=== PATIENT | female | born 1965 | race Caucasian/White ===

== ENCOUNTER 2016-11-13 07:40 | Inpatient (IN) ==
[2016-11-13 08:33] LABS: Apearance,Urine CLEAR (Clear); Bilirubin,Urine Negative (Negative); Blood, Urine Negative (Negative); Glucose,Urine (UA) Negative (Negative); Hyaline Casts,Urine 1 /LPF (0-3); Ketones,Urine Negative (Negative); Nitrite,Urine Negative (Negative); Protein,Urine Negative; Squamous Epithelial Cell,Urine Occasional /HPF (0-10); Urine Color Straw (Yellow); Urine Specific Gravity 1.003 (1.001-1.035); Urine Urobilinogen < 2.0 EU/DL (0.2-1.0); WBC,Urine <1 /HPF (0-6)
--- NOTE | 2016-11-13 08:47 | XRay Report ---
Exam: XR ankle 3V RT Date: 11/13/2016 8:27 AM Indication: Pain deformity Comparison: None Technical: AP lateral oblique image Findings: Spiral fracture of the fibula is present. The exam reveals faint lucency over the medial malleolus. The talus is intact. The calcaneus reveals enthesophyte spur present calcic is no the Achilles tendon. The adjacent tarsal bones metatarsals are intact. Soft tissue swelling and small joint effusion present. Impression: 1. Spiral fracture of the distal fibula with slight lateral positioning 2. Nondisplaced fracture of the medial malleolus with faint lucency present. 3. Soft tissue swelling PROCEDURE INTERPRETED AT [facility] DEPARTMENT OF RADIOLOGY Final Report Signed by: Dr. Ubaldo Reyes
--- NOTE | 2016-11-13 08:48 | CT Report ---
CT head/brain wo con INDICATION: Altered mental status/confusion The total DLP is 942 mGy*cm. COMPARISON: None available Technique: Serial axial tomographic images of the brain were obtained without the use of intravenous contrast. Dose reduction: This CT exam was performed using one or more of the following dose reduction techniques: Automated exposure control, automated adjustment of the mA and/or KV according to patient size, or use of iterative reconstruction technique. Findings: The cortical sulcal pattern is generally symmetric and within normal limits in appearance bilaterally. There is no evidence of vascular territory infarct or acute intracranial hemorrhage. The rivas-white matter differentiation is generally maintained. There is no hydrocephalus. The basilar cisterns are patent. The visualized paranasal sinuses, right mastoid air cells and middle ear cavities are predominantly clear. Partial opacification of the left mastoid air cells is noted. The included orbits and their contents appear within normal limits. The visualized osseous structures and overlying soft tissues of the skull and face demonstrate no acute abnormality. IMPRESSION: No acute intracranial abnormality. Partial opacification of left mastoid air cells PROCEDURE INTERPRETED AT [facility] DEPARTMENT OF RADIOLOGY Final Report Signed by: Abhishek Brwon
--- NOTE | 2016-11-13 08:53 | XRay Report ---
Exam: XR chest 1V portable Indication: Confusion, altered mental status Comparison study: None Findings: The heart, mediastinum, and bony structures are within normal limits. Minimal perihilar interstitial opacities are noted, which are nonspecific. There is no focal consolidation, pneumothorax or pleural effusion identified. Impression: No definite focal pneumonia. Minimal perihilar interstitial opacities may represent underlying atelectasis or interstitial infectious/inflammatory infiltrates versus scarring. There is no prior for comparison. PROCEDURE INTERPRETED AT [facility] DEPARTMENT OF RADIOLOGY Final Report Signed by: Abhishek Brown
[2016-11-13 08:57] LABS: Basophils # 0.1 10*3/uL (0.0-0.2); Basophils % 0.3 % (0.0-0.8); Eosinophils # 0.4 10*3/uL (0.0-0.87); Eosinophils % 2.5 % (0.00-10.9); Hematocrit 42.7 VOL% (35.7-47.0); Hemoglobin 14.8 GM/DL (12.0-16.0); Immature Granulocytes % 0.8 %; Immature Granulocytes Absolute 0.12 #; Lymphocytes # 4.4 10*3/uL (1.4-4.0); Mean Corpuscular HGB Conc 34.7 GM/DL (32-36); Mean Corpuscular Hemoglobin 31 PG (27-34); Mean Corpuscular Volume 90.1 FL (87-102); Mean Platelet Volume 9.4 FL (9.6-12.0); Monocytes % 6.5 % (1.7-12.7); Neutrophils # 9.1 10*3/uL (1.4-7.4); Neutrophils % 60.9 % (38.7-73.9); Platelet Count 282 T/CUMM (130-400); Red Blood Count 4.74 MC/CUMM (3.8-5.5); Red Cell Distribution Width 13.3 % (9.3-17.3)
[2016-11-13 09:02] LABS: PT Patient Result 10.3 SECS
[2016-11-13 09:09] LABS: Barbiturates Screen,Urine Negative (Negative); Benzodiazepines Screen,Urine Negative (Negative); Cannabinoid Screen,Urine Negative (Negative); Opiate Screen,Urine Negative (Negative); Phencyclidine Screen,Urine Negative (Negative)
[2016-11-13 09:19] LABS: Alanine Aminotransferase 25 U/L (13-56); Albumin 3.8 G/DL (3.4-5.0); Alkaline Phosphatase 105 U/L (45-117); Aspartate Amino Transferase 19 U/L (0-37); Bilirubin,Total < 0.39 MG/DL (0.2-1.0); Blood Urea Nitrogen 11 MG/DL (7-18); Calcium 9.4 MG/DL (8.5-10.1); Glucose 110 MG/DL (74-106); Osmolality,Calculated 280.3 MOS/KG (273-304); Sodium 141 MMOL/L (136-145); Total Protein 7.6 G/DL (6.4-8.3); Troponin I Only < 0.015 NG/ML (0.00-0.045)
--- NOTE | 2016-11-13 09:30 | EKG Report ---
Stationary ECG Study [facility] ER Test Date: 11/13/2016 9:31:39 AM Pat Name: ALEXIS BURNS Department: Room: Gender: F Bonderizer: : 1965 Requested by: Kehinde Williamson Order Number: [id number] Reading MD: HEATHER ROCHA Intervals One[place] Rate: 73 P: 57 DC: 151 QRS: 53 QRSD: 85 T: 55 QT: 388 QTc: 414 Interpretive Statements SINUS RHYTHM Electronically Signed On 11-13-16 17:13:18 CDT by HEATHER ROCHA [email or web address]
--- NOTE | 2016-11-13 10:15 | Emergency Department Note ---
Bart Piper Rolonda, am scribing for, and in the presence of, Kehinde Walton MD 08:36. Isabelle Piper Phillip K, MD, personally performed the services described in this documentation, ascribed by Jeevan Arriaga in my presence, and it is both accurate and complete . Arrival - Arrival Chief Complaint: Altered Mental Status Stated Complaint: AMS ED Nursing Triage Note: pt to triage via wc with c/o having ams onset this am around 0700. family states she is not talking and not acting right. Mode of Arrival: Wheelchair Limitations: Altered Mental Status Source: Significant other (), Old Records Reviewed, RN Notes Reviewed Time Seen by Provider: 11/13/16 08:17 - History of Present Illness HPI Narrative: Pt is a 51 y/o female who was brought to the ED via wheelchair for further evaluation of AMS with an onset of 0700 this morning. Pt has a SHx of smoking. states that he talked to her late last night and she was still functioning normally. By the time he got off of work this morning states that pt was ambulatory but was not able to speak which prompted visit to the ED today. states that pt normally has to have at least 2 cups of coffee every day in order for her to "be in her normal mood." also states that pt had been complaining of right hand pain and decreased movement for x2-3 days [employer]. No other complaint/pain in ED. Onset (ago): hour(s) Consistency: constant Severity: moderate, severe Severity scale (1-10): 7 Allergies/Adverse Reactions: Allergies Allergy/AdvReac Type Severity Reaction Status Date / Time No Known Allergies Allergy Unverified 11/13/16 07:50 Review of System - Review of System ROS unobtainable: due to mental status Medical,Surgical,& Family Hx - Social History Smoking Status: Current every day smoker Frequency of Alcohol Use: None Type of Drug Use: None Exam Vital Signs: Vital Signs Temperature 96.9 F L 11/13/16 07:51 Pulse Rate 82 11/13/16 07:51 Respiratory Rate 20 11/13/16 07:51 Blood Pressure 128/77 11/13/16 07:51 O2 Sat by Pulse Oximetry 97 11/13/16 07:44 - General General appearance: alert, lethargic - Head Head exam: Present: atraumatic, normocephalic - Eye Eye exam: Present: PERRL, EOMI - ENT ENT exam: Present: mucous membranes moist. Absent: mucous membranes dry - Neck Neck exam: Present: full ROM. Absent: tenderness - Chest Chest inspection: Present: symmetric chest wall rise. Absent: tenderness - Respiratory Respiratory exam: Present: normal lung sounds bilaterally. Absent: wheezes - Cardiovascular Cardiovascular exam: Present: regular rate, normal rhythm, normal heart sounds. Absent: bradycardia - Abdominal Exam Abdominal exam: Present: soft, normal bowel sounds. Absent: tenderness - Extremities Exam Extremities exam: Present: tenderness (Right ankle), joint swelling (Right ankle ). Absent: normal inspection (decreased movement on right side of the body) - Back Exam Back exam: Present: full ROM. Absent: tenderness - Neurological Exam Neurological exam: Present: alert, CN II-XII intact - Psychiatric Psychiatric exam: Present: other (did not follow commands; unable to answer questions; diffucult to arrouse ). Absent: normal affect, normal mood - Skin Skin exam: Present: warm, dry, intact, normal color. Absent: rash Results - Labs CBC & BMP: 11/13/16 08:01 11/13/16 08:01 Lab Results: I have reviewed the patients labs (Drug screen is negative. Alcohol is negative) Labs: Laboratory Tests 11/13/16 11/13/16 08:01 08:19 POC Glucose 109 H Urine pH 6.0 Ur Specific [place] 1.003 Urine Protein Negative Urine Glucose (UA) Negative Urine Ketones Negative Urine Blood Negative Urine Nitrate Negative Urine Bilirubin Negative Urine Urobilinogen < 2.0 H Urine Leukocytes Negative Urine WBC <1 Ur Squamous Epith Cells Occasional Hyaline Casts 1 Ur Culture Indicated? Not indicated Laboratory Tests 11/13/16 08:01 WBC 15.0 H RBC 4.74 Hgb 14.8 Hct 42.7 Plt Count 282 MPV 9.4 L Neut # (Auto) 9.1 H Lymph # (Auto) 4.4 H [place] # (Auto) 1.0 H Laboratory Tests 11/13/16 11/13/16 11/13/16 08:01 08:01 08:01 INR 1.0 PT Patient/Control Mix 10.3 Urine pH 6.0 Ur Specific [place] 1.003 Urine Protein Negative Urine Glucose (UA) Negative Urine Ketones Negative Urine Blood Negative Urine Nitrate Negative Urine Bilirubin Negative Urine Urobilinogen < 2.0 H Urine Leukocytes Negative Urine WBC <1 Ur Squamous Epith Cells Occasional Hyaline Casts 1 Ur Culture Indicated? Not indicated Urine Opiates Screen Negative Ur Barbiturates Screen Negative Ur Phencyclidine Scrn Negative U Amphetamine/Methamph Negative U Benzodiazepines Scrn Negative U Cocaine Metab Screen Negative U Cannabinoids Screen Negative - EKG EKG results: interpreted by JEAN, WNL, sinus rhythm - Diagnostic Findings Procedure: Chest x-ray: report reviewed by me (No definite focal pneumonia. Minimal perihilar interstitial opacities may represent underlying atelectasis or interstitial infectious/inflammatory infiltrates versus scarring. There is no prior for comparison.), CT: report reviewed by me (Head/Brain: No acute intracranial abnormality.), X-ray: report reviewed by me (Ankle: 1. Spiral fracture of the distal fibula with slight lateral positioning. 2. Nondisplaced fracture of the medial mallelous with faint lucency present. 3. Soft tissue swelling.) Disposition Clinical Impression: Altered mental status, Possible CVA, Acquired aphasia, Closed right ankle fracture Case discussed with: patient, patient's family Disposition: Still a Patient Condition: Guarded Additional Instructions: Admit to the hospitalist. Consult neurology and orthopedics.
--- NOTE | 2016-11-13 10:24 | Hospitalist History & Physical ---
Addendum entered and electronically signed by Radha Fu NP 11/13/16 11:31: Neurologic exam Patient is lethargic but arousable. She responds to name calling. She is Asphasic. She is in no acute distress and does not appear to be in pain or discomfort. She will open eyes to voice but immediately goes back to sleep. She does not follow commands. GCS 9: Opens eyes to voice, no verbal response ( patient does not answers questions); localizes pain (withdraws r/t tender to right ankle related to right ankle fracture) Cranial nerve: Unable to assess properly related to altered mental status and patient inability to follow commands. She moves extremities: Left side extremity frequently movement and right side minimal extremities movement, movement is not purposeful. Left side movements are stronger than the right side movements. Patient will open eyes to voice but does not close eyes to command and notice eye movement but without purpose. Did not smile with command but no obvious facial droop is noted; symmetrical in appearance. Family was not in room during exam, obtained history of present illness from ER physician and ER notes. Last well time is unknown. Unable to obtain information from patient r/t AMS. Unable to obtain complete medical history or surgical history r/t patients current altered mental status and no family available at present. Flat affect and unable to assess mood r/t AMS. ROS unable to complete related to patients current altered mental status and inability to provide information. Original Note: <Radha Fu - Last Filed: 11/13/16 10:08> Assessment and Plan - Time spent with patient Time spent with patient: Greater than 30 minutes (1) Altered mental status Status: Acute Assessment and plan: Stroke vs TIA vs Encephalopathy Admit to Hospitalist services to Critical Care bed. Consult Neurology: Dr Jimenez. Check Ammonia level. Asa, Lovenox, Statin coverage, Check A1c and bedside swallow eval. MRI, Carotids Dopplers, Echo. Consult OT and PT. Current Visit: Yes (2) Pneumonia Status: Acute Assessment and plan: Admit. Start Antibiotics: Levaquin. Check Ammonia level with complete stroke work-up as well. Repeat labs in the a.m. and chest xray in a.m. Current Visit: Yes (3) Fracture of ankle, medial malleolus, closed Status: Acute Assessment and plan: Consult Orthopedics for spiral fracture of the distal fibula with slight lateral positioning; nondisplaced fracture of the medial malleolus with faint lucency present, and soft tissue swelling. Current Visit: Yes History of Present Illness Chief complaint: altered mental status History of present illness: Ms. Almendarez is a 51 year old white female presented to the [facility] ED for further evaluation of altered mental status. Upon exam, family was not in the room and the nurse was unsure where they went. With exam, Patient will open eyes to her name but will not follow commands and doses back off to sleep. She will move all extremities but not purposefully or on command. It was reported by the , he talked to her last night and she was normal at that time. However, after getting off work this morning, he found in the state of being able to ambulate but unable to speak therefore he brought her to the ED for further evaluation. Medical history none significant known. Patient is a everyday smoker. Patient did not receive antithrombolytics related to unsure of the exact last normal time, was at work last night and came home this morning to find changes in her. At the time of ED presentation, the patient was assessed. Vital signs stable temp 96.9; pulse rate 82; blood pressure 128/77;97% oxygenation 1 L nasal cannula. Labs obtained: WBC 15.0; hemoglobin 14.8; hematocrit 42.7; platelet 282; INR 1.0; PT 10.3 sodium 141; potassium 4.0; chloride 107; carbon dioxide 26 ; anion gap 12.0; BUN 11; creatinine 0.9; glucose 110;AST 19; ALT 25; alkaline phos 105; troponin less than 0.015; albumin 3.8. Urinalysis within normal limits. Toxicology screen negative, alcohol negative. Head CT: No acute intracranial abnormality, partial opacification of the mastoid air cells. Chest x-ray: Minimal perihilar interstitial opacities may represent underlying atelectasis or interstitial infection/inflammatory infiltrates versus scarring. Ankle x-ray: Fracture distal fibula with slight lateral positioning, nondisplaced fracture of the medial malleolus with faint lucency present, soft tissue swelling. Patient was noted to be tender to touch of the right ankle but unable to get a clear picture of what happened to cause the fracture. After discussion with Dr. Walton ED physician, and [facility]. [facility] physician, it is agreed patient will be admitted to hospitalist services for continuation of care for further evaluation. We will consult Neurology. Will consult orthopedics for ankle fracture. Medications to be reviewed and reconciliation to follow. CODE STATUS full code. Allergies Allergy/AdvReac Type Severity Reaction Status Date / Time No Known Allergies Allergy Unverified 11/13/16 07:50 Medical,Surgical,& Family Hx - Social History Smoking Status: Current every day smoker Frequency of Alcohol Use: None Type of Drug Use: None Marital Status: Functional capacity: independent ambulation (able to ambulate until about/after 7 a.m.) Review of systems: ROS completed and pertinent positive and negatives in HPI. Exam - Constitutional Vitals: Period Temp Pulse Resp BP Sys/Menjivar Pulse Ox Last 24 Hr 96.9 F-96.9 F 82-82 20-20 128-128/77-77 97 General appearance: normal weight, no acute distress - Head Head exam: Present: normal inspection, normocephalic - Eye Eye exam: Present: EOMI Pupils: Present: STUART - ENT ENT exam: Present: other (moist membranes) - Neck Neck exam: Present: normal inspection - Respiratory Respiratory exam: Present: clear to auscultation bilaterally - Cardiovascular Cardiovascular exam: Present: regular rate and rhythm - GI/Abdominal GI/Abdominal exam: Present: normal bowel sounds, soft. Absent: guarding, tenderness, rebound - Extremities Exam Extremities exam: Present: other (able to move all extremities but not purposefully; weak movement to the right side; right ankle swollen and tender to touch; ) - Neurological Exam Neurological exam: Present: alert (lethargic) - Psychiatric Psychiatric exam: Present: flat affect (patient does not follow commands; unable to answer questions; arousable but immediately closes eyes and goes back to sleep). Absent: normal mood, anxious - Skin Skin exam: Present: normal color, warm, abrasion (right knee red without break in the skin, right ankel swollen and tender to touch), dry Results - Labs CBC & BMP: 11/13/16 08:01 11/13/16 08:01 Lab Results: I have reviewed the past 24 hour labs - EKG EKG results: interpreted by ERMD - Diagnostic Findings Procedure: Chest x-ray: report reviewed by me (No definite focal pneumonia, minimal perihilar interstitial opacities may represent underlying atelectasis or interstitial infectious/inflammatory infiltrates persists scarring, there is no prior comparison.), CT: report reviewed by me (Head: No acute intracranial abnormality, partial opacification of left mastoid air cell), X-ray: report reviewed by me (Ankle: Spiral fracture of the distal fibula with slight lateral positioning, nondisplaced fracture of the medial malleolus with faint lucency present, soft tissue swelling) <Alek Paz - Last Filed: 11/13/16 15:35> Assessment and Plan - Time spent with patient Time spent with patient: Greater than 30 minutes (1) Acute ischemic stroke Status: Acute Assessment and plan: Stroke workup. Neurology consult. Aspirin and statin. MRI,carotids and echo. Current Visit: Yes (2) Altered mental status Status: Acute Current Visit: Yes Qualifiers: Coma depth: [place] coma 9-12 (3) Closed right ankle fracture Status: Acute Current Visit: Yes Qualifiers: Encounter type: initial encounter Qualified Code(s): S82.891A - Other fracture of right lower leg, initial encounter for closed fracture History of Present Illness History of present illness: Ms. Almendarez is a 51 year old female brought to the emergency department this morning with altered mental status. She is being admitted to the hospital for workup of stroke. She also suffered a fall and right ankle fracture. Case was discussed with Radha Fu NP. The patient has no previous medical history according to her . The patient is unable to participate in the history portion due to her aphasia. She is not on any home medications. She does not see a primary care physician regularly. No recent surgeries or hospitalizations. A full review of systems is unobtainable secondary to the patient's aphasia. Medical,Surgical,& Family Hx - Medical History Medical History: noncontributory (No significant medical history according to the patient's family) - Surgical History Surgical History: noncontributory (No significant prior surgeries according to the patient's family) - Family History Family History: noncontributory (No family history of hypertension or stroke) ROS unobtainable: due to mental status Exam - Constitutional Vitals: Period Temp Pulse Resp BP Sys/Menjivar Pulse Ox Last 24 Hr 96.9 F-97.8 F 79-82 16-20 128-132/77-78 97-98 - Extremities Exam Extremities exam: Present: other - Neurological Exam Neurological exam: Present: abnormal gait, altered, motor sensory deficit. Absent: oriented X3, normal gait - Expanded Neurological Exam Neurological exam: Present: expressive aphasia Speech: Present: total aphasia Results - Labs CBC & BMP: 11/13/16 08:01 11/13/16 08:01 Lab Results: I have reviewed the past 24 hour labs
[2016-11-13] MEDS ORDERED: LABETALOL 20 MG/4 ML SYRINGE IV PRN (10:46)
[2016-11-13] MEDS ORDERED: ALBUTEROL/IPRATROPIUM 3 ML NEB RESP TX PRN (11:00)
[2016-11-13] MEDS ORDERED: LORazepam 2 MG/1 ML VIAL ONE (11:29)
[2016-11-13] MEDS: LEVOFLOXACIN INJ 750 MG in PREMIX 1 EACH IV SCH (12:49)
[2016-11-13] MEDS: SODIUM CHLORIDE 0.9% 1,000 ML IV SCH (12:50)
[2016-11-13] MEDS: ENOXAPARIN 40 MG/0.4 ML SYRINGE SUBCUT SCH (12:50)
[2016-11-13] MEDS: MORPHINE 2 MG/1 ML SYRINGE IV PRN ×3 (12:59→20:53)
[2016-11-13] MEDS ORDERED: LORazepam 2 MG/1 ML VIAL IV ONE (14:00)
--- NOTE | 2016-11-13 14:52 | Ultrasound Report ---
Exam: US carotid duplex BI Date: 11/13/2016 11:08 AM Indication: CVA, TIA symptoms Findings: Grayscale color flow analysis and spectral analysis imaging was performed with image stored and captured. Right Flow velocities centimeters per second Common carotid artery: 74 Proximal ICA: 200 Distal ICA: 162 External carotid artery: 313 Vertebral artery: 61 ICA/CCA ratio: 2.7 Measurements in millimeters Distal ICA: 4.8 Left: Flow velocities centimeters per second Common carotid artery: 75 Proximal ICA: 58 Distal ICA: 90 External carotid artery: 294 Vertebral artery: 55 ICA/CCA ratio: 1.2 Measurements in millimeters Distal ICA: 5.3 Minimal intimal hyperplasia the carotid arteries from the common carotid arteries. Moderate plaque within the takeoff the right ICA with mild plaque in the left ICA.. No spectral broadening clearly seen. Impression: 1. Findings suggest 50-70% stenosis of the right ICA. 2. 16-49% stenosis left ICA. CT angiography may be beneficial for further evaluation. Today studies were performed utilizing indirect NASCET criteria The ultrasound images were stored and captured PROCEDURE INTERPRETED AT [facility] DEPARTMENT OF RADIOLOGY Final Report Signed by: Dr. Ubaldo Reyes
--- NOTE | 2016-11-13 14:56 | Event Note ---
Pt gone for MRI
--- NOTE | 2016-11-13 16:08 | ECHO Report ---
Bertha Almendarez Exam Date: 11/13/2016 12:22 Referring Physician: Technologist: Sariah Quinn RDCS Age: 51 Ht (in): 63 Wt (lb): 130 Gender: F Exam Location: [facility] Echo Indications: Altered mental status, Pneumonia, Closed ankle fracture, Nicotine dependence, cigarettes, uncomplicated BP: 132 / 78 HR: 90 Rhythm: Sinus tachycardia Technical Quality: Fair IMPRESSIONS 1. Left ventricle is normal size and systolic function ejection fraction 60+%. 2. The patient is in sinus tachycardia at the time of the study. 3. Other cardiac chambers are normal size. 4. Cardiac valves overall appear to be unremarkable and within normal limits. 5. No gross source for emboli appreciated on this study. MEASUREMENTS (Male / Female) Normal Values 2D ECHO LV Diastolic Diameter PLAX 4.2 cm 4.2 - 5.9 / 3.9 - 5.3 cm LV Systolic Diameter PLAX 2.7 cm LV Fractional Shortening PLAX 35.0 % IVS Diastolic Thickness 0.7 cm 0.6 - 1.0 / 0.6 - 0.9 cm LVPW Diastolic Thickness 0.8 cm 0.6 - 1.0 / 0.6 - 0.9 cm RV Internal Dim ED PLAX 2.2 cm Aortic Root Diameter 2.9 cm LA Systolic Diameter LX 2.8 cm 3.0 - 4.0 / 2.7 - 3.8 cm DOPPLER TR Peak Velocity 261.0 cm/s TR Peak Gradient 27.2 mmHg FINDINGS Left Ventricle Normal left ventricular cavity size. Normal left ventricular wall thickness. Left ventricular ejection fraction is estimated at 60+ %. Right Ventricle The right ventricle is normal in size and function. Right Atrium The right atrium is normal in size. Left Atrium The left atrium is normal in size. Mitral Valve Morphologically normal mitral valve. Trace mitral valve regurgitation. Aortic Valve Morphologically normal aortic valve without significant sclerosis or stenosis. There is no aortic regurgitation. Tricuspid Valve Morphologically normal tricuspid valve. Trace tricuspid valve regurgitation. Tricuspid regurgitation velocities suggest a PAP of 37 mmHg. Pulmonic Valve Morphologically normal pulmonic valve without significant stenosis. There is no pulmonic regurgitation. Pericardium Normal pericardium without effusion. Aorta Normal ascending aorta dimension. Jairo Caputo MD (Electronically Signed) Final Date: 13 November 2016 16:07
--- NOTE | 2016-11-13 16:19 | Magnetic Resonance Report ---
[facility] of the [place]. Indication: CVA. Aphasia. No prior studies. Normal columns of flow are seen in the proximal common carotid arteries. There is mild to moderate the cavernous internal carotid artery on the left. There is a prominent narrowing seen of the middle branches of the left middle cerebral artery, with areas of narrowing seen scattered more distally on the left. Normal flow is seen involving the right middle cerebral artery. The flow in the left anterior cerebral artery is diminished relative to the right, with areas of focal narrowing seen. Normal posterior communicating artery flow is present. The proximal branches of both posterior cerebral arteries are of normal caliber, but there is narrowing and poor flow seen distally bilaterally, but worse on the right. The basilar artery is narrowed throughout its length. Impression: Areas of narrowing involving the cavernous portion of the left internal carotid artery, mid and distal branches of the left middle cerebral artery. Mid and distal branches of the left anterior cerebral artery, and peripheral branches of both posterior cerebral arteries, right greater than left. Smooth narrowing PROCEDURE INTERPRETED AT [facility] DEPARTMENT OF RADIOLOGY Final Report Signed by: Dr. Courtney Moore
--- NOTE | 2016-11-13 16:21 | Magnetic Resonance Report ---
Exam: MR head/brain w and wo con Date: 11/13/2016 11:08 AM Comparison: CT brain 11/13/2016 Indication: CVA Technical: 1.5 Bette magnet Axial T1 pre-and postcontrast, ADC, DWI, FLAIR, gradient echo and FSE T2 Sagittal T1 precontrast, Coronal postcontrast T1 Contrast: 20 cc Dotarem Findings: Exam reveals abnormal ADC/ diffusion imaging involving the left subcortical frontal parietal white matter of the left middle cerebral artery distribution. . The brainstem, cerebellum exhibit normal signal characteristics. The cerebral hemispheres exhibit abnormal signal as described above in the left subcortical frontal parietal white matter and parietal lobe no obvious contrast enhancement region in this region. Some abnormal FLAIR signal characteristics are present associated with the infarction. No other areas of abnormality are demonstrated in the cerebral hemispheres bilaterally. The corpus callosum is unremarkable. The seventh and eighth cranial nerves and cerebral pontine angles are intact. The pituitary gland, infundibulum and optic chiasm are intact. The paranasal sinuses exhibit normal signal characteristics. The mastoid sinuses are revealed some fluid signal in the mastoid air cells left greater than right. The globes and intra-and extraconal spaces are unremarkable. Impression: 1. Acute infarction involving the left parietal lobe in the subcortical white matter region and posterior left parietal lobe. This represents a portion of the left middle cerebral artery distribution. Minimal abnormality in the temporal lobe also present in the posterior aspect of the frontal lobe. 2. No acute hemorrhage present or contrast enhancing lesion noted. PROCEDURE INTERPRETED AT [facility] DEPARTMENT OF RADIOLOGY Final Report Signed by: Dr. Ubaldo Reyes
--- NOTE | 2016-11-13 16:27 | Magnetic Resonance Report ---
Exam: MR angio neck wo/w con Date: 11/13/2016 11:07 AM Indication: CVA Comparison: None Technical 3-D axial and coronal slab imaging available for review with and without gadolinium enhancement with 20 cc of Dotarem. 3-D reproduction images are available for review. Findings: The brachiocephalic artery left subclavian arteries are patent. The right subclavian artery is unremarkable. The vertebral arteries are patent. Left carotid is unremarkable. The left common carotid artery, internal and external carotid are demonstrated. There is minimal narrowing of the left ICA with mild plaque. The distal vessel measures 4.2 mm the proximal vessel measures 2.8 mm The right internal and external carotid artery demonstrated without high-grade stenosis or occlusions present minimal narrowing of the right ICA takeoff present. The distal vessel measures 4.2 mm. The proximal vessel measures 2.5 mm. Impression: 1. Approximately 40% narrowing of the right internal carotid artery and approximately 30% narrowing of the left internal carotid artery without high-grade stenosis present bilaterally. PROCEDURE INTERPRETED AT [facility] DEPARTMENT OF RADIOLOGY Final Report Signed by: Dr. Ubaldo Reyes
[2016-11-13] MEDS ORDERED: MORPHINE 2 MG/1 ML SYRINGE IV ONE (18:00)
--- NOTE | 2016-11-13 18:38 | Orthopedic Consult Note ---
History of Present Illness Chief complaint: Right bimalleolar ankle fracture History of present illness: Ms. Almendarez is a 51 year old female who was admitted for evaluation for change in mental status. On MRI she has been found to have a left sided cerebrovascular accident. The works third shift and when he returned in the morning it was noticed that she had mental status changes. She is unable to articulate and to give a history. The is not present. X- rays demonstrate a nondisplaced bimalleolar ankle fracture. Past medical history, past surgical history, medicines allergies was reviewed from the chart. Right lower extremity shows that she has a flaccid right lower extremity and upper extremity. She has mild redness and edema about her ankle. Pulses are palpable. Sensation appears to be intact to pain. Radiographs ankle demonstrate a nondisplaced bimalleolar ankle fracture. Impression right bimalleolar ankle fracture Plan: I did advise nonoperative treatment. She was placed in posterior molded splint with stirrups. She is to float her heel. She will require close follow- up. Family was not present. Home Medications Medication Instructions Recorded Confirmed Type No Known Home Medications [No 11/13/16 11/13/16 History Known Home Medications] Allergies Allergy/AdvReac Type Severity Reaction Status Date / Time No Known Allergies Allergy Unverified 11/13/16 07:50 ROS unobtainable: due to mental status Medical,Surgical,& Family Hx - Medical History Reproductive: History of: Abnormal Pap Smear - Surgical History Reproductive Surgeries: Surgical HX of;: Section, Gynecologic Surgery - Social History Smoking Status: Current every day smoker Frequency of Alcohol Use: None Type of Drug Use: None Exam - Constitutional Vitals: Period Temp Pulse Resp BP Sys/Menjivar Pulse Ox Last 24 Hr 96.9 F-98.0 F 70-95 14-20 115-148/68-99 91-100 Results - Labs CBC & BMP: 11/13/16 08:01 11/13/16 08:01 Assessment and Plan (1) Bimalleolar fracture of right ankle Status: Acute Current Visit: Yes Qualifiers: Encounter type: initial encounter Fracture type: closed Qualified Code(s) : S82.841A - Displaced bimalleolar fracture of right lower leg, initial encounter for closed fracture
[2016-11-13] MEDS: ATORVASTATIN 40 MG TABLET PO SCH (20:53)
[2016-11-14] MEDS: SODIUM CHLORIDE 0.9% 1,000 ML IV SCH ×5 (03:15→22:05)
[2016-11-14] MEDS: MORPHINE 2 MG/1 ML SYRINGE IV PRN ×5 (03:38→22:06)
[2016-11-14 07:27] LABS: Basophils % 0.4 % (0.0-0.8); Eosinophils # 0.1 10*3/uL (0.0-0.87); Eosinophils % 0.7 % (0.00-10.9); Hematocrit 38.8 VOL% (35.7-47.0); Hemoglobin 13.2 GM/DL (12.0-16.0); Immature Granulocytes % 0.5 %; Immature Granulocytes Absolute 0.05 #; Lymphocytes # 2.8 10*3/uL (1.4-4.0); Mean Corpuscular Hemoglobin 31 PG (27-34); Mean Corpuscular Volume 91.3 FL (87-102); Monocytes % 9.5 % (1.7-12.7); Neutrophils # 6.8 10*3/uL (1.4-7.4); Neutrophils % 62.9 % (38.7-73.9); Platelet Count 225 T/CUMM (130-400); Red Blood Count 4.25 MC/CUMM (3.8-5.5); Red Cell Distribution Width 13.6 % (9.3-17.3); White Blood Count 10.8 T/CUMM (4-12)
--- NOTE | 2016-11-14 07:29 | XRay Report ---
Exam: XR chest 1V Date: 11/14/2016 4:00 AM Indication: Pneumonia Comparison: 11/13/2016 Technical: AP Findings: External cardiac leads are present. Mild enlargement of the cardiac silhouette. Oxygen tubing is noted. A few reticular nodular densities are present. No obvious consolidations. Lateral marginal osteophytes are noted. Patchy infiltrate suspected in the left infrahilar region. Impression: 1. Mild cardiac enlargement 2. Left infrahilar infiltrate suspected. PROCEDURE INTERPRETED AT [facility] DEPARTMENT OF RADIOLOGY Final Report Signed by: Dr. Ubaldo Reyes
[2016-11-14 08:02] LABS: Calcium 8.4 MG/DL (8.5-10.1); Osmolality,Calculated 277.4 MOS/KG (273-304)
[2016-11-14 08:09] LABS: Risk Ratio 6.43; VLDL CHOLESTEROL 31.2 MG/DL
[2016-11-14] MEDS ORDERED: ASPIRIN 325 MG TABLET PO SCH (09:00)
[2016-11-14] MEDS: NICOTINE 14 MG/24 HR PATCH TRANSDERM SCH (09:22)
[2016-11-14] MEDS: LEVOFLOXACIN INJ 750 MG in PREMIX 1 EACH IV SCH (11:07)
--- NOTE | 2016-11-14 11:35 | Hospitalist Progress Note ---
Assessment and Plan (1) Acute ischemic stroke Status: Acute Assessment and plan: Continue statin. Continue aspirin. Neurology consult pending. MRI reviewed. PT OT and speech therapy. Okay to transfer to the floor. Current Visit: Yes (2) Altered mental status Status: Acute Current Visit: Yes Qualifiers: Coma depth: [place] coma 9-12 (3) Closed right ankle fracture Status: Acute Assessment and plan: Nonoperative management per orthopedic surgery. Current Visit: Yes Qualifiers: Encounter type: initial encounter Qualified Code(s): S82.891A - Other fracture of right lower leg, initial encounter for closed fracture (4) Hyperlipidemia Status: Chronic Assessment and plan: Continue Lipitor Current Visit: Yes Qualifiers: Hyperlipidemia type: mixed hyperlipidemia Qualified Code(s): E78.2 - Mixed hyperlipidemia (5) Tobacco use disorder Status: Chronic Assessment and plan: Nicotine replacement patch ordered Current Visit: Yes Hospitalist: Subjective Interval history: Patient seen and examined. No acute events overnight. Case discussed with nursing staff. Labs reviewed. Patient with acute left brain stroke with expressive aphasia. She is more awake and alert today and follows commands better. She has weakness on the right upper and lower extremity. She is able to oppose gravity. She was not able to squeeze my hand with her right. Exam - Constitutional Vitals: Period Temp Pulse Resp BP Sys/Menjivar Pulse Ox Last 24 Hr 97.2 F-98.5 F 60-110 12-26 94-171/50-99 91-100 Exam: Constitutional System: Mild distress. No tremulousness. Head: Normocephalic, atraumatic. Ears, Nose and Throat System: No pain or tenderness. No epistaxis or discharge Eyes System: Pupils equal, round, and reactive. Extraocular muscles intact. Neck: Supple, without adenopathy, No jugular venous distention. No thyromegaly, neck mass, or prior surgery apparent. Respiratory System: Chest clear to auscultation. Cardiovascular System: Heart with regular rate and rhythm. No murmur. GI System: Abdomen soft, nontender. Normo active bowel sounds present. Musculoskeletal System: limbs with no pedal edema. Full distal pulses. Splint placed, right lower extremity status post ankle fracture. Neurological System: Expressive aphasia noted. Patient with weakness in the right upper and lower extremity. Unable to squeeze my hand with the right. Sensation is intact. She is able to oppose gravity with the right lower extremity. Results - Labs CBC & BMP: 11/14/16 07:21 11/14/16 07:21 Lab Results: I have reviewed the past 24 hour labs Quality Measures - Stroke Onset of Symptoms Date: 11/13/16 Presenting Symptoms: Broca's dysphasia Symptom Onset Unknown: No
[2016-11-14] MEDS: ENOXAPARIN 40 MG/0.4 ML SYRINGE SUBCUT SCH (12:28)
--- NOTE | 2016-11-14 14:58 | Neurology Consult Note ---
History of Present Illness History of present illness: 51 years old right-handed white lady with past medical history significant for chronic smoking admitted to the hospital with altered mental status. Patient is unable to provide me any history. History basically obtained from the chart. actually found her in the state of being able to ambulate but unable to speak therefore he brought her to the ED for further evaluation. MRI of the brain revealed left MCA distribution acute infarct. Carotid ultrasound is unremarkable. Echocardiogram is unremarkable and showed ejection fraction of 60%. Lipid profile is abnormal and she is on Lipitor now. Blood pressure is quite stable. Never had any similar symptoms before. She is moving her right arm and leg pretty weakly. No speech at this time. She has been evaluated by speech and recommended pured diet Home Medications Medication Instructions Recorded Confirmed Type No Known Home Medications [No 11/13/16 11/13/16 History Known Home Medications] Allergies Allergy/AdvReac Type Severity Reaction Status Date / Time No Known Allergies Allergy Unverified 11/13/16 07:50 ROS unobtainable: other (A aphasia) Medical,Surgical,& Family Hx - Medical History Reproductive: History of: Abnormal Pap Smear - Surgical History Reproductive Surgeries: Surgical HX of;: Section, Gynecologic Surgery - Social History Smoking Status: Current every day smoker Frequency of Alcohol Use: None Type of Drug Use: None Exam - Constitutional Vitals: Period Temp Pulse Resp BP Sys/Menjivar Pulse Ox Last 24 Hr 97.9 F-98.5 F 60-110 10-26 94-171/50-96 91-100 Exam: GENERAL: Patient is in no acute distress. NECK: Neck is supple. There is no JVD. No carotid bruits present. No thyroid masses. CVS: First and second heart sounds are normal. There is no S3 present. Regular rate and rhythm. RESPIRATORY: Lungs are clear to auscultation without any rales or rhonchi. ABDOMEN: Soft and non-tender. Bowel sounds are present. There is no hepatosplenomegaly. EXT: There is no palpable edema. Peripheral pulses are present. Skin: No rashes Central Nervous system: General: Alert, awake Speech: Non-Fluent Comprehension: Fair Facial expressions: Normal Cranial Nerves: CN1/Olfactory: Normal CN II/ Optic: Normal, Visual Tran: Right homonymous mid CN III, and : STUART & EOMI CN V: Normal & intact CN VII: face is symmetric CNVIII: Normal CN XI/X/XI/XII: Intact and Normal Motor: Bulk and Tone is normal. Strength in the right 2-3/5. Right foot is in cast Strength in the left 4/5 Sensory: Unreliable Reflexes: 1+ and symmetrical Cerebellar function: Slow finger to nose and heel to greenberg testing in the right. Toes: Equivocal Gait: Not tested at this Results - Labs CBC & BMP: 11/14/16 07:21 11/14/16 07:21 Assessment and Plan (1) Acute CVA (cerebrovascular accident) Status: Acute Assessment and plan: Stop aspirin Start Aggrenox 1 p.o. twice daily Continue PT and OT Consult TMR and can go tomorrow if insurance approves Current Visit: Yes (2) Closed right ankle fracture Status: Acute Assessment and plan: Right ankle is in a cast Current Visit: Yes Qualifiers: Encounter type: initial encounter Qualified Code(s): S82.891A - Other fracture of right lower leg, initial encounter for closed fracture (3) Hyperlipidemia Status: Chronic Assessment and plan: Continue Lipitor Current Visit: Yes Qualifiers: Hyperlipidemia type: mixed hyperlipidemia Qualified Code(s): E78.2 - Mixed hyperlipidemia (4) Tobacco use disorder Status: Chronic Assessment and plan: Counseled regarding cessation of smoking Add Prozac Current Visit: Yes
--- NOTE | 2016-11-14 15:16 | Orthopedic Progress Note ---
Assessment and Plan (1) Bimalleolar fracture of right ankle Status: Acute Current Visit: Yes Qualifiers: Encounter type: initial encounter Fracture type: closed Qualified Code(s) : S82.841A - Displaced bimalleolar fracture of right lower leg, initial encounter for closed fracture Orthopedics - Subjective Interval history: More responsive today. Still aphasic. RLE splint intact. She is able to perform a straight leg raise and able to f/e toes. Continue to elevate and to float her heel. NWB RLE. Exam - Constitutional Vitals: Period Temp Pulse Resp BP Sys/Menjivar Pulse Ox Last 24 Hr 97.9 F-98.5 F 60-110 10-26 94-171/50-96 91-100 Results - Labs CBC & BMP: 11/14/16 07:21 11/14/16 07:21 Quality Measures - Stroke Onset of Symptoms Date: 11/13/16 Presenting Symptoms: Broca's dysphasia Symptom Onset Unknown: No
[2016-11-14] MEDS: ATORVASTATIN 40 MG TABLET PO SCH (22:05)
[2016-11-14] MEDS: DIPYRIDAMOLE/ASPIRIN 200-25 MG CAPSULE PO SCH (22:05)
[2016-11-15] MEDS: MORPHINE 2 MG/1 ML SYRINGE IV PRN ×3 (02:15→20:10)
[2016-11-15] MEDS: SODIUM CHLORIDE 0.9% 1,000 ML IV SCH (05:32)
[2016-11-15] MEDS: DIPYRIDAMOLE/ASPIRIN 200-25 MG CAPSULE PO SCH ×2 (09:34→21:51)
[2016-11-15] MEDS: NICOTINE 14 MG/24 HR PATCH TRANSDERM SCH (09:35)
[2016-11-15] MEDS: ENOXAPARIN 40 MG/0.4 ML SYRINGE SUBCUT SCH (10:43)
[2016-11-15] MEDS: LEVOFLOXACIN INJ 750 MG in PREMIX 1 EACH IV SCH (10:47)
--- NOTE | 2016-11-15 12:04 | Hospitalist Progress Note ---
Assessment and Plan (1) Acute ischemic stroke Status: Acute Assessment and plan: Continue statin. Continue Aggrenox Neurology consult reviewed and discussed. MRI reviewed. PT OT and speech therapy. Okay to transfer to rehab once accepted Current Visit: Yes (2) Altered mental status Status: Resolved Current Visit: Yes Qualifiers: Coma depth: [place] coma 9-12 (3) Closed right ankle fracture Status: Acute Assessment and plan: Nonoperative management per orthopedic surgery. Current Visit: Yes Qualifiers: Encounter type: initial encounter Qualified Code(s): S82.891A - Other fracture of right lower leg, initial encounter for closed fracture (4) Hyperlipidemia Status: Chronic Assessment and plan: Continue Lipitor Current Visit: Yes Qualifiers: Hyperlipidemia type: mixed hyperlipidemia Qualified Code(s): E78.2 - Mixed hyperlipidemia (5) Tobacco use disorder Status: Chronic Assessment and plan: Nicotine replacement patch ordered Current Visit: Yes Hospitalist: Subjective Interval history: Patient seen and examined. No acute events overnight. Case discussed with nursing staff. Labs reviewed. Patient continues to improve slowly. She is able to move her right upper and lower extremity better today. She is still unable to speak. Exam - Constitutional Vitals: Period Temp Pulse Resp BP Sys/Menjivar Pulse Ox Last 24 Hr 96.1 F-99.8 F 63-97 10-20 121-155/62-83 93-99 Exam: Constitutional System: Mild distress. No tremulousness. Expressive aphasia noted Head: Normocephalic, atraumatic. Ears, Nose and Throat System: No pain or tenderness. No epistaxis or discharge Eyes System: Pupils equal, round, and reactive. Extraocular muscles intact. Neck: Supple, without adenopathy, No jugular venous distention. No thyromegaly, neck mass, or prior surgery apparent. Respiratory System: Chest clear to auscultation. Cardiovascular System: Heart with regular rate and rhythm. No murmur. GI System: Abdomen soft, nontender. Normo active bowel sounds present. Musculoskeletal System: limbs with no pedal edema. Full distal pulses. Splint placed, right lower extremity status post ankle fracture. Neurological System: Expressive aphasia noted. Patient with weakness in the right upper and lower extremity. She was able to squeeze my hand with the right. Sensation is intact. She is able to oppose gravity with the right lower extremity. Results - Labs CBC & BMP: 11/14/16 07:21 11/14/16 07:21 Lab Results: I have reviewed the past 24 hour labs Quality Measures - Stroke Onset of Symptoms Date: 11/13/16 Presenting Symptoms: Broca's dysphasia Symptom Onset Unknown: No
[2016-11-15] MEDS: ATORVASTATIN 40 MG TABLET PO SCH (21:51)
[2016-11-16] MEDS: MORPHINE 2 MG/1 ML SYRINGE IV PRN ×3 (01:22→12:10)
[2016-11-16] MEDS: NICOTINE 14 MG/24 HR PATCH TRANSDERM SCH (09:22)
[2016-11-16] MEDS: DIPYRIDAMOLE/ASPIRIN 200-25 MG CAPSULE PO SCH (09:22)
--- NOTE | 2016-11-16 10:45 | Orthopedic Progress Note ---
Assessment and Plan (1) Bimalleolar fracture of right ankle Status: Acute Current Visit: Yes Qualifiers: Encounter type: initial encounter Fracture type: closed Qualified Code(s) : S82.841A - Displaced bimalleolar fracture of right lower leg, initial encounter for closed fracture Orthopedics - Subjective Interval history: comfortable. More alert. still aphasic, but demonstrates some speech and understanding. RLE splinted. f/e toes. cr less than 2secs. right bimalleolar fx. Keep splint clean, dry and intact. Float heels. Strict nonweightbearing right lower extremity. Follow-up appointment 2 weeks. I am going to sign off. Reconsult with problems. Exam - Constitutional Vitals: Period Temp Pulse Resp BP Sys/Menjivar Pulse Ox Last 24 Hr 96.8 F-98.4 F 76-95 16-20 109-153/54-77 92-100 Results - Labs CBC & BMP: 11/14/16 07:21 11/14/16 07:21 Quality Measures - Stroke Onset of Symptoms Date: 11/13/16 Presenting Symptoms: Broca's dysphasia Symptom Onset Unknown: No
--- NOTE | 2016-11-16 11:13 | Discharge Summary ---
Hospital Course - Hospital Course Hospital Course: 51-year-old white female brought to the emergency department with altered mental status. She was found to have a right ankle fracture. She was admitted for workup of acute stroke. She was found to have a left temporoparietal stroke in the left middle cerebral artery distribution. She has expressive aphasia consistent with the stroke area on MRI. She was seen in consultation by Dr. Jimenez. She was started on Aggrenox twice daily. She had an elevated total cholesterol and triglyceride level and was started on Lipitor. She was counseled regarding smoking cessation and was started on a nicotine replacement patch during the course of the hospitalization. A posterior splint was placed by orthopedic surgery for her right ankle fracture. Nonoperative management was recommended. She is instructed to follow-up with orthopedic surgery in 2 weeks and to [id number] until that time. Recommendations from orthopedic surgery are: Keep splint clean, dry and intact. Float heels. Strict nonweightbearing right lower extremity. Follow-up appointment 2 weeks. She is being transferred to [facility] rehab for continued rehabilitation status post acute stroke. Lasting deficits include difficulties with coordination involving the right upper and lower extremity however this is improving slowly. Her strength and sensation are intact. Expressive aphasia persists and is her the most concerning deficit status post acute stroke. I spent 5 minutes discussing smoking cessation with the patient. She appears to understand and does not have any deficits when it comes to comprehension. She was not on any home medications at the time of admission. She is given new medications as result of this hospitalization including Lipitor, Aggrenox, Prozac, and [place] for pain. She will need to follow-up with orthopedics and her primary care physician as an outpatient after completing rehab at [facility]. - Time spent with patient Time with patient DS: Greater than 30 minutes (Total discharge time for this patient, including [id number] time, clinical documentation, medication reconciliation, and discharge planning was 39 minutes.) Diagnosis - Discharge Diagnosis (1) Acute ischemic stroke Status: Acute (2) Altered mental status Status: Resolved (3) Closed right ankle fracture Status: Acute (4) Hyperlipidemia Status: Chronic (5) Tobacco use disorder Status: Chronic Discharge Plan - Discharge Data Disposition: Disch/Xfer-Ip Rehab Fac Condition at Discharge: Stable Discharge Diet: advance to your usual diet Activity: resume usual activities as tolerated Hygiene: no restrictions Weight Bearing at Discharge: non-weight bearing Contact your physician if you experience:: fever over 101, Shortness of breath, pain uncontrolled by pain medications - Discharge Medications New Enoxaparin [Lovenox] 40 mg SUBCUT Q24H syringe Hydrocodone/Acetaminophen [[place] 10-325 Tablet] 1 each PO Q4HR PRN #30 tablet PRN Reason: Pain Morphine Inj 2 mg IV Q4H PRN syringe PRN Reason: Pain Severe (8-10) Atorvastatin [Lipitor] 80 mg PO BEDTIME tablet Dipyridamole/Aspirin 200-25 [Aggrenox] 1 capsule PO BID capsule Nicotine 14 mg/24 Hr Patch [Nicoderm CQ 14 mg/24 hr Patch] 1 patch TRANSDERM DAILY patch FLUoxetine [PROzac] 20 mg PO BEDTIME #30 capsule - Follow Up or Referral Follow Up: Chucho Mejia Jr., MD [Physician] - 2 Weeks (Keep splint clean, dry and intact. Float heels. Strict nonweightbearing right lower extremity. Follow-up appointment 2 weeks.) - Forms/Instructions Exam - Constitutional Vitals: Period Temp Pulse Resp BP Sys/Menjivar Pulse Ox Last 24 Hr 96.8 F-98.4 F 76-95 16-20 109-153/54-77 92-100 Discharge Results Procedures and tests throughout hospitalization: Pending Orders 11/13/16 11:34 Blood Culture Stat Labs on day of discharge: Preliminary micro results at discharge 11/13/16 11:34 Blood Culture - Preliminary Blood No growth at 1 day 11/13/16 11:35 Blood Culture - Preliminary Blood No growth at 1 day DS: Provider Date of admission: 11/13/16 10:07 Primary care physician: . No PCP Attending physician on admission: Alek Paz MD Consults: 11/13/16 10:46 Consult to Case Mgmt/Social Srvs [CONS] Routine Reason for Case Mgmt/Social Srvs: Discharge Planning Consult to Occupational Therapy [CONS] Routine Reason for Occupational Therapy: Evaluate and Treat Consult Comment: Stroke Consult to Physical Therapy [CONS] Routine Reason for Physical Therapy: Evaluate and Treat Start Therapy: Today Consult Comment: stroke Consult to Physician [CONS] Routine Comment: spiral fx distal fibula; nondisplaced fx malleolus Consulting Provider: Chucho Mejia Jr. Consulting Provider Notified: Yes When should Consulting Provider be notified: Now Consult to Specialist Group: Orthopedic Person Notified: CATHERINE Date Notified: 11/13/16 Time Notified: 11:45 Consult Notification Comment: Right ankle 11/13/16 10:56 Consult to Physician [CONS] Routine Comment: stroke vs tia (altered mental status) Consulting Provider: Julio Jimenez Consulting Provider Notified: Yes When should Consulting Provider be notified: Now Consult to Specialist Group: Neurology Person Notified: KISHA Date Notified: 11/13/16 Time Notified: 13:00 11/14/16 15:03 Consult to Case Mgmt/Social Srvs [CONS] Routine Reason for Case Mgmt/Social Srvs: Rehab Discharging clinician: Alek Paz MD Expected date of discharge: 11/16/16
[2016-11-16] MEDS: LEVOFLOXACIN INJ 750 MG in PREMIX 1 EACH IV SCH (11:52)
[2016-11-16] MEDS: ENOXAPARIN 40 MG/0.4 ML SYRINGE SUBCUT SCH (11:52)
[2016-11-16 12:26] VITALS: BP 135/76
--- NOTE | 2016-11-21 08:08 | Physician Query Form ---
CLICK EDIT DOCUMENT TO SELECT QUERY ANSWER --> OK --> SIGN Rachelle Perdue RN Clinical Cytology Teacher W) [phone] (f) [phone] [email or web address]: Make your selection(s) from the choices in EACH section by typing an "x" and enter comments in the comment section. Please use your independent medical judgment in providing your response. This request does not imply that any particular answer is desired or expected. CLINICAL INDICATORS: (Providers should not edit this section) The below diagnosis was documented in the record, but is not consistently noted in subsequent documentation. Based on documentation of "Acute Pneumonia" "No definite focal pneumonia" Treated with IV Levaquin. Diagnosis: Acute Pneumonia Please clarify the following: ( ) The above diagnosis was monitored, evaluated, and/or treated and is a confirmed diagnosis ( X) The above diagnosis was ruled out ( ) The above diagnosis is still a likely, suspected, probable diagnosis ( ) Other, please specify: ( ) Clinically unable to determine COMMENTS: PLEASE ALSO DOCUMENT RESPONSE IN PROGRESS NOTES AND/OR DISCHARGE SUMMARY Use of terms such as suspected, likely, or probable (associated with a specific diagnosis that is being evaluated, monitored, or treated as if it exists) are acceptable and can be restated in the discharge summary if not ruled out. MTDD
== END 2016-11-16 16:35 | DRG 65 ==
LOC: N.ED 07:40 → N.EDINP 10:07 → N.ICU 11:11 → N.TELES 11-14 19:09
PROVIDERS: ADMIT Family Medicine; ATTEND Family Medicine